=== PATIENT | female | born 1965 | race Caucasian/White ===

== ENCOUNTER 2018-11-01 12:12 | Observation (INO) | payer OTHER ==
[~2018-11-01] VITALS: Ht 157.5 cm; Wt 63.3 kg
[2018-11-01] MEDS ORDERED: NITROGLYCERIN 2% 1 GM OINT PKT TD STA (13:27)
[2018-11-01] MEDS ORDERED: ASPIRIN 81 MG TAB PO STA (13:27)
[2018-11-01] MEDS ORDERED: ASPI325T30 PO (13:29)
[2018-11-01] MEDS ORDERED: NITROGLYCERIN (SL) 0.4 MG TAB SL PRN (13:30)
--- NOTE | 2018-11-01 14:23 | ERD ---
ER Documentation Chief Complaint Chief Complaint mid/ L sided CP+SOB x3d, interm/non-reprod/worse at night. 09/19 now. HPI Patient is a 53-year-old female with hypertension and diabetes who presents with chest pain. The patient has midsternal chest pain and she says that she feels a "inside her chest". She feels like it "in the heart". She says that it was like a heaviness and she has associated shortness of breath. Symptoms have been there for 3 days and come and go. She said is worse at night. She tried aspirin yesterday. She does have a primary doctor. ROS All systems reviewed and are negative except as per history of present illness. Medications Home Meds Reported Medications Aspirin* (Aspirin*) 325 Mg Tablet, 325 MG PO DAILY, TAB 11/01/18 Allergies Allergies: Coded Allergies: No Known Allergy (Unverified , 11/01/18) PMhx/Soc Medical and Surgical Hx: pt denies Medical Hx, pt denies Surgical Hx Hx Alcohol Use: Yes (occasional) Hx Substance Use: No Hx Tobacco Use: No Smoking Status: Never smoker FmHx Family History: No coronary disease Physical Exam Vitals Vital Signs Date Temp Pulse Resp B/P (MAP) Pulse Ox O2 O2 Flow FiO2 Time Delivery Rate 11/01/18 61 16 103/62 100 Room Air 13:21 (76) 11/01/18 98.7 78 18 123/66 97 12:41 (85) Physical Exam Const: No acute distress Head: Atraumatic Eyes: Normal Conjunctiva ENT: Normal External Ears, Nose and Mouth. Neck: Full range of motion. No meningismus. Resp: Clear to auscultation bilaterally Cardio: Regular rate and rhythm, no murmurs Abd: Soft, non tender, non distended. Normal bowel sounds Skin: No petechiae or rashes Back: No midline or flank tenderness Ext: No cyanosis, or edema Neur: Awake and alert Psych: Normal Mood and Affect Result Diagram: 11/01/18 1334 11/01/18 1334 Results 24 hrs Laboratory Tests Test 11/01/18 13:34 White Blood Count 5.0 10^3/ul Red Blood Count 4.15 10^6/ul Hemoglobin 12.7 g/dl Hematocrit 37.6 % Mean Corpuscular Volume 90.6 fl Mean Corpuscular Hemoglobin 30.6 pg Mean Corpuscular Hemoglobin Concent 33.8 g/dl Red Cell Distribution Width 12.2 % Platelet Count 253 10^3/UL Mean Platelet Volume 10.0 fl Immature Granulocytes % 0.200 % Neutrophils % 44.1 % Lymphocytes % 45.9 % Monocytes % 7.6 % Eosinophils % 1.6 % Basophils % 0.6 % Nucleated Red Blood Cells % 0.0 /100WBC Immature Granulocytes # 0.010 10^3/ul Neutrophils # 2.2 10^3/ul Lymphocytes # 2.3 10^3/ul Monocytes # 0.4 10^3/ul Eosinophils # 0.1 10^3/ul Basophils # 0.0 10^3/ul Nucleated Red Blood Cells # 0.0 10^3/ul Sodium Level 139 mmol/L Potassium Level 4.0 mmol/L Chloride Level 107 mmol/L Carbon Dioxide Level 24 mmol/L Anion Gap 8 Blood Urea Nitrogen 18 mg/dl Creatinine 0.70 mg/dl Est Glomerular Filtrat Rate mL/min > 60 mL/min Glucose Level 103 mg/dl Calcium Level 10.1 mg/dl Troponin I < 0.012 ng/ml Current Medications Medications Dose Sig/Andreia Start Time Status Last (Trade) Ordered Route PRN Stop Time Admin Dose Reason Admin Aspirin 162 mg ONCE STAT 11/01/18 DC 11/01/18 (Aspirin) PO 13:27 13:40 11/01/18 13:28 1 inch ONCE STAT 11/01/18 DC 11/01/18 Nitroglycerin TD 13:27 13:41 11/01/18 13:28 (Nitroglyceri n 2% Oint) 1 tab Q5M UP TO 3 11/01/18 11/01/18 Nitroglycerin DOSES PRN 13:30 13:40 SL .CHEST (Nitroglyceri PAIN n (Sl Tab) 0.4 Mg) Ondansetron 4 mg ER BRIDGE 11/01/18 HCl (Zofran PRN IV 14:30 Inj) NAUSEA/VOMITI 11/02/18 14:29 NG 650 mg ER BRIDGE 11/01/18 Acetaminophen PRN PO 14:30 (Tylenol .MILD PAIN 11/02/18 14:29 Tab) 1-3 OR TEMP Procedures/MDM EKG read by me: Rate/Rhythm: Regular rate and rhythm at a normal rate Intervals: Normal Impression: No evidence of ischemia or arrhythmia Chest x-ray negative per radiology. Patient is a 53-year-old female with hypertension and diabetes who presents with chest pain and shortness of breath. I am concerned for potential acute coronary syndrome. I doubt pneumonia, pneumothorax, pulmonary embolism, or aortic dissection. The patient will be admitted to Dr. Rodriguez as the patient has [facility] insurance. The patient will be admitted to a telemetry observation bed. I have contacted Dr. Rodriguez by [employer]. The patient was given aspirin and nitroglycerin empirically. Departure Diagnosis: Primary Impression: Chest pain Chest pain type: unspecified Qualified Codes: R07.9 - Chest pain, unspecified Condition: MAIK Patel MD Nov 01, 2018 14:23
[2018-11-01] MEDS ORDERED: ONDANSETRON 4 MG INJ IV PRN ×2 (14:30→17:30)
[2018-11-01] MEDS ORDERED: ACETAMINOPHEN 325 MG TAB PO PRN ×2 (14:30→17:30)
--- NOTE | 2018-11-01 17:05 | QN ---
Documentation Comment seen and examined MOOK TOBAR MD Nov 01, 2018 17:05
--- NOTE | 2018-11-01 17:11 | QN ---
Documentation Comment seen and examined MOOK TOBAR MD Nov 01, 2018 17:11
[2018-11-01] MEDS ORDERED: DOCUSATE SODIUM 100 MG CAP PO PRN (17:30)
[2018-11-01] MEDS ORDERED: NACL 0.9% 3 ML SYG IV SCH (17:30)
[2018-11-01] MEDS ORDERED: HYDROCODONE/APAP (5/325) TAB PO PRN (17:30)
[2018-11-01] MEDS ORDERED: ZOLPIDEM 5 MG TAB PO PRN (17:30)
[2018-11-01] MEDS ORDERED: morphine 2 MG INJ IV PRN (17:30)
[2018-11-01 17:53] VITALS: BP 112/60; PULSE 66; RESP 19
[2018-11-01 18:19] VITALS: Ht 157.5 cm; Wt 63.3 kg
--- NOTE | 2018-11-01 19:26 | HP ---
DATE OF ADMISSION: 11/01/2018 REASON FOR ADMISSION: Chest pain. HISTORY OF PRESENT ILLNESS: A 53-year-old female who was recently diagnosed with diabetes, controlle d currently, diet controlled, presented to the emergency department after complaining of chest pain f or the last 3 days. According to the patient, last 3 days ago she was sleeping all of a sudden, then she started noticing stabbing pain in her chest. The pain was coming and going, associated sometime s with breathing lasting for a few seconds. It was getting worse for the last 3 days and made him wo rried and came to the emergency department. The patient was recently diagnosed with diabetes a month ago and has been on diet control per the PMD. The patient also had some slight shortness of breath on admission. Denied any cough, any fevers or chills. On arrival to ED, vital signs showed blood pr essure of 123/66, afebrile, heart rate 78, respirations 18, saturating 97%. Labs showed troponin les s than 0.015. White count 5.0, hemoglobin 12.7. EKG did not show any acute ST or T wave changes. C hest x-ray was negative. The patient was given aspirin and nitroglycerin. The patient felt some rel ief of pain with nitroglycerin and was admitted for further management. PAST MEDICAL HISTORY: 1. Recently diagnosed diabetes. 2. Questionable hypertension. ALLERGIES: NONE. PAST SURGICAL HISTORY: The patient has a left shoulder lipoma surgery. SOCIAL HISTORY: Denies any history of smoking, alcohol or any drug use. Currently lives at home wit h the family, is a director [employer]. FAMILY HISTORY: Noncontributory. REVIEW OF SYSTEMS: The patient has been having intermittently pressure-like pain, stabbing-like pain in the left chest, lasting for a few seconds for the last 3 days. Denied any anxiety, stress, or an y heartburn. Denied any abdominal pain, nausea, vomiting, or diarrhea. Denied any headache or any b lurry vision. Denied any hematemesis or melena. Denied any focal neurological deficit. PHYSICAL EXAMINATION: VITAL SIGNS: Temperature afebrile, heart rate 78, respirations 18, blood pressure 123/66, saturating 97%. GENERAL: The patient is awake, alert, and oriented. She does not appear in any acute distress. HEENT: Pupils equal, round, and reactive to light. NECK: Supple, no JVD. HEART: Regular rate and rhythm. LUNGS: Clear to auscultate bilaterally. ABDOMEN: Soft, nontender, and nondistended. EXTREMITIES: No clubbing, cyanosis, or edema. DIAGNOSTIC DATA: BMP within normal limits. White count 5.0, hemoglobin 12.5, platelet count 253,000 . EKG: Normal rate and rhythm. ASSESSMENT AND PLAN: This is a 53-year-old female who presented with: 1. Chest pain, rule out acute coronary syndrome. The patient has only risk factor of recently diagn osed diabetes. Chest x-ray is negative. It could be also questionable underlying stress, anxiety/ga stroesophageal reflux disease. 2. Recently diagnosed diabetes. PLAN: At this period of time, the patient will be admitted to telemetry. The patient will be on asp irin. We will check a cholesterol panel. The patient will be on morphine for pain. We will get an echo and serial troponins. Cardiology consultation will be obtained. The rest of the treatment depe nds on the patient's hospitalization course. Dictated By: MOOK CAREY/JUAN Conf#: [id number] DID#: [id number] CC: ELEAZAR DEAN MD;*End*
[2018-11-01 20:00] VITALS: BP 117/68; PULSE 58; PULSE 65; RESP 18
[2018-11-01] MEDS: FAMOTIDINE 20 MG INJ IV SCH (20:52)
[2018-11-02] VITALS: BP 107/51; PULSE 54; PULSE 55; RESP 18
[2018-11-02 04:00] VITALS: BP 100/50; PULSE 55; PULSE 60; RESP 18
[2018-11-02 07:16] VITALS: BP 102/48; PULSE 54; RESP 19
[2018-11-02 08:00] VITALS: PULSE 63
[2018-11-02] MEDS: FAMOTIDINE 20 MG INJ IV SCH (08:28)
--- NOTE | 2018-11-02 08:51 | CONS ---
Consultation Date/Type/Reason Admit Date/Time Nov 01, 2018 at 14:19 Type of Consult Cardiology Date/Time of Note DATE: 11/02/18 TIME: 08:50 Hx of Present Illness 53 yo with ? htn, new DM - CP - non ischemic, outpt stress test vs med rx advised as pre-test probability is low. Full note dictated # [id number] Past Medical History Home Meds Reported Medications Aspirin* (Aspirin*) 325 Mg Tablet, 325 MG PO DAILY, TAB 11/01/18 Medications Current Medications Nitroglycerin (Nitroglycerin (Sl Tab) 0.4 Mg) 1 tab Q5M UP TO 3 DOSES PRN SL .CHEST PAIN Last administered on 11/01/18at 13:40; Admin Dose 1 TAB; Start 11/01/18 at 13:30 Ondansetron HCl (Zofran Inj) 4 mg ER BRIDGE PRN IV NAUSEA/VOMITING; Start 11/01/18 at 14:30; Stop 11/02/18 at 14:29 Acetaminophen (Tylenol Tab) 650 mg ER BRIDGE PRN PO .MILD PAIN 1-3 OR TEMP; Start 11/01/18 at 14:30; Stop 11/02/18 at 14:29 IV Flush (NS 3 ml) 3 ml PER PROTOCOL IV ; Start 11/01/18 at 17:30 Ondansetron HCl (Zofran Inj) 4 mg Q6H PRN IV NAUSEA/VOMITING; Start 11/01/18 at 17:30 Acetaminophen (Tylenol Tab) 650 mg Q6H PRN PO .PAIN 1-3 OR TEMP; Start 11/01/18 at 17:30 Acetaminophen/ Hydrocodone Bitart (Beatrice (5/325)) 1 tab Q6H PRN PO .MOD PAIN 4- 6; Start 11/01/18 at 17:30 Morphine Sulfate (morphine) 2 mg Q4H PRN IV .SEVERE PAIN 7-10; Start 11/01/18 at 17:30 Docusate Sodium (Colace) 100 mg Q12H PRN PO .CONSTIPATION; Start 11/01/18 at 17:30 Zolpidem Tartrate (Ambien) 5 mg QHS PRN PO .INSOMNIA; Start 11/01/18 at 17:30 Famotidine (Pepcid Iv) 20 mg Q12 IV Last administered on 11/02/18at 08:28; Admin Dose 20 MG; Start 11/01/18 at 21:00 Enoxaparin Sodium (Lovenox) 40 mg DAILY SC Last administered on 11/02/18at 08:37; Admin Dose 40 MG; Start 11/02/18 at 09:00 Aspirin (Halfprin) 81 mg DAILY PO Last administered on 11/02/18at 08:28; Admin Dose 81 MG; Start 11/02/18 at 09:00 Allergies: Coded Allergies: No Known Allergy (Unverified , 11/01/18) Social History Smoking Status: Never smoker Exam/Review of Systems Vital Signs Vitals Vital Signs Date Temp Pulse Resp B/P (MAP) Pulse Ox O2 O2 Flow FiO2 Time Delivery Rate 11/02/18 98.1 54 19 102/48 98 07:16 (66) 11/01/18 Room Air 17:33 Intake and Output 11/01/18 11/01/18 11/02/18 1515:00 23:00 07:00 IntakeIntake Total 400 ml BalanceBalance 400 ml Labs Result Diagram: 11/01/18 1334 11/01/18 1334 Results 24hrs Laboratory Tests Test 11/01/18 13:34 11/01/18 17:18 11/01/18 19:12 11/01/18 23:11 White Blood Count 5.0 Red Blood Count 4.15 L Hemoglobin 12.7 Hematocrit 37.6 Mean Corpuscular 90.6 Volume Mean Corpuscular 30.6 Hemoglobin Mean Corpuscular 33.8 Hemoglobin Concent Red Cell 12.2 Distribution Width Platelet Count 253 Mean Platelet Volume 10.0 Immature 0.200 Granulocytes % Neutrophils % 44.1 Lymphocytes % 45.9 Monocytes % 7.6 Eosinophils % 1.6 Basophils % 0.6 Nucleated Red Blood 0.0 Cells % Immature 0.010 Granulocytes # Neutrophils # 2.2 Lymphocytes # 2.3 Monocytes # 0.4 Eosinophils # 0.1 Basophils # 0.0 Nucleated Red Blood 0.0 Cells # Sodium Level 139 Potassium Level 4.0 Chloride Level 107 Carbon Dioxide Level 24 Anion Gap 8 Blood Urea Nitrogen 18 Creatinine 0.70 Est Glomerular > 60 Filtrat Rate mL/min Glucose Level 103 Calcium Level 10.1 Troponin I < 0.012 < 0.012 < 0.012 < 0.012 D-Dimer < 220.00 D-Dimer Comment Creatine Kinase 67 68 62 Creatine Kinase 0.8 0.7 0.8 Index Creatinine Kinase MB 0.51 0.49 0.47 (Mass) Test 11/02/18 05:13 Creatine Kinase 57 Creatine Kinase 0.7 Index Creatinine Kinase MB 0.41 (Mass) Troponin I < 0.012 Medications Medications Current Medications Nitroglycerin (Nitroglycerin (Sl Tab) 0.4 Mg) 1 tab Q5M UP TO 3 DOSES PRN SL .CHEST PAIN Last administered on 11/01/18at 13:40; Admin Dose 1 TAB; Start 11/01/18 at 13:30 Ondansetron HCl (Zofran Inj) 4 mg ER BRIDGE PRN IV NAUSEA/VOMITING; Start 11/01/18 at 14:30; Stop 11/02/18 at 14:29 Acetaminophen (Tylenol Tab) 650 mg ER BRIDGE PRN PO .MILD PAIN 1-3 OR TEMP; Start 11/01/18 at 14:30; Stop 11/02/18 at 14:29 IV Flush (NS 3 ml) 3 ml PER PROTOCOL IV ; Start 11/01/18 at 17:30 Ondansetron HCl (Zofran Inj) 4 mg Q6H PRN IV NAUSEA/VOMITING; Start 11/01/18 at 17:30 Acetaminophen (Tylenol Tab) 650 mg Q6H PRN PO .PAIN 1-3 OR TEMP; Start 11/01/18 at 17:30 Acetaminophen/ Hydrocodone Bitart (Beatrice (5/325)) 1 tab Q6H PRN PO .MOD PAIN 4- 6; Start 11/01/18 at 17:30 Morphine Sulfate (morphine) 2 mg Q4H PRN IV .SEVERE PAIN 7-10; Start 11/01/18 at 17:30 Docusate Sodium (Colace) 100 mg Q12H PRN PO .CONSTIPATION; Start 11/01/18 at 17:30 Zolpidem Tartrate (Ambien) 5 mg QHS PRN PO .INSOMNIA; Start 11/01/18 at 17:30 Famotidine (Pepcid Iv) 20 mg Q12 IV Last administered on 11/02/18at 08:28; Admin Dose 20 MG; Start 11/01/18 at 21:00 Enoxaparin Sodium (Lovenox) 40 mg DAILY SC Last administered on 11/02/18at 08:37; Admin Dose 40 MG; Start 11/02/18 at 09:00 Aspirin (Halfprin) 81 mg DAILY PO Last administered on 11/02/18at 08:28; Admin Dose 81 MG; Start 11/02/18 at 09:00 BERKLEY STEWART MD Nov 02, 2018 08:51
[2018-11-02] MEDS ORDERED: ENOXAPARIN 40 MG/0.4 ML SYG SC SCH (09:00)
[2018-11-02] MEDS ORDERED: ASPIRIN (EC) 81 MG TAB PO SCH (09:00)
--- NOTE | 2018-11-02 09:26 | CONS ---
DATE OF ADMISSION: 11/01/2018 DATE OF CONSULTATION: 11/02/2018 TYPE OF CONSULTATION: Cardiology. REFERRING PHYSICIANS: Gayathri Dawson M.D. REASON FOR EVALUATION: Precordial chest pain. HISTORY OF PRESENT ILLNESS: The patient is a 53-year-old woman with recently diagnosed diabetes, his tory of well controlled hypertension, came to the emergency department with history of precordial dis comfort for about 3 days. The patient does not have any known coronary artery disease, family histor y of coronary artery disease. She did not rule in for acute ischemia. EKG is nondiagnostic. She do es have some risk factors for coronary artery disease and I offered the patient to have a stress test while she is here in the hospital, but I think that she would prefer to do it as an outpatient. I w ill discuss with Dr. Dawson. I think inpatient versus outpatient testing would be reasonable. Other than that conservative therapy expected for now. PAST MEDICAL HISTORY: Recently diagnosed diabetes, questionable hypertension. ALLERGIES: NO KNOWN DRUG ALLERGIES. SOCIAL HISTORY: The patient does not smoke, does not drink or illicit drugs. FAMILY HISTORY: Negative for sudden cardiac or premature coronary artery disease. MEDICATIONS: Include: 1. Aspirin 81 mg. 2. Famotidine. 3. Morphine for pain. 4. Subcutaneously Lovenox. 5. Sublingual nitroglycerin. REVIEW OF SYSTEMS: CONSTITUTIONAL: No fevers, no chills, no recent weight changes. HEENT: No change in vision or hearing. CARDIAC: Chest pain for now. RESPIRATORY: Short of breath. GASTROINTESTINAL: No nausea, vomiting. GENITOURINARY: No dysuria, hematuria. NEUROLOGIC: No focal neurologic deficit. HEMATOLOGIC: No easy bruising. PSYCHIATRIC: No history of psychiatric illness. DERMATOLOGIC: No rashes. PHYSICAL EXAMINATION: VITAL SIGNS: Temperature 98.1, heart rate 54, blood pressure 102/48. GENERAL: She is thin woman in no acute distress, alert and oriented x3, aware of her condition. HEAD: Normocephalic, atraumatic. Eyes anicteric. NECK: Supple. JVD 6 cm. No lymphadenopathy, no thyromegaly. HEART: Holosystolic murmur at the apex. PMI is minimally displaced. There is no S3. LUNGS: Coarse sounds clear to auscultation. ABDOMEN: Bowel sounds present. No hepatosplenomegaly. GENITOURINARY: Intact. EXTREMITIES: Showing no clubbing, cyanosis or edema. LABORATORY DATA: White blood cell count 4.3, hemoglobin 12.7, platelets 253. Her INR is normal and troponins are normal at 0.012. ASSESSMENT AND PLAN: 1. Precordial chest pain. The patient's precordial chest pain is atypical by presentation. I think it is reasonable for the patient has an outpatient risk stratification with a stress test given rece nt factors. 2. Possible hypertension. Blood pressure is not elevated now. She is not in any significant blood pressure medications, continue to monitor. We will consider to add HARSHA inhibitor if possible, but I am not sure blood pressure will tolerate. 3. Possible anxiety defer to primary team for the stress test recently diagnosed diabetes. Dr. Kurtz in will follow. I would like to thank Dr. Dawson, for referring this patient for my evaluation. Dictated By: BERKLEY STEWART MD ML/NTS Conf#: [id number] DID#: [id number] CC: ELEAZAR DEAN MD; INDIGO FRIEDMAN MD;*EndCC*
[2018-11-02 11:07] VITALS: BP 111/47; PULSE 67; RESP 19
--- NOTE | 2018-11-02 11:10 | PDOCDIS ---
Discharge Instructions DIAGNOSIS Discharge Diagnosis Atypical chest pain CONDITION [id number] Patient Condition: Mgmvf6h Fair HOME CARE INSTRUCTIONS: [id number] Diet Instructions: Ofmqd3e Low Fat /Cholesterol Lmpox2Bz Special Diet: Vsyxk0o Carb controlled ACTIVITY: [id number] Activity Restrictions: Nfipl5x Slowly Increase Activity Rest between Activity Avoid heavy lifting FOLLOW UP/APPOINTMENTS Follow-up Plan Follow with PCP in 1-2 weeks Follow-up with cardiology and outpatient stress testing Return to ER if he has chest pain and shortness of breath MOOK TOBAR MD Nov 02, 2018 11:10
[2018-11-02 12:00] VITALS: PULSE 73
--- NOTE | 2018-11-02 14:49 | RADRPT ---
Echocardiogram Report Patient Name: CATRACHITA CLEVELANDPatient ID: [id number] : 1965 (53y 8m)Study Date: 11/02/2018 7:33:16 AM Gender: FAccession #: [id number] Tech: KhushbooJeromy Hinson [facility] Location: 9 Ref.Physician: MOOK TOBAR Height(Cm): BSA: Weight(Kg): Quality: AdequateAccount #: Procedures: Echocardiographic Report: Transthoracic echocardiogram with complete 2D, M-Mode, and doppler examination. Indications: Chest Pain. Measurements: 2D/M Mode Doppler Measurement Value Normal Range Measurement Value Normal Range LVIDd 2D 3.9 [ 3.8 - 5.2 ] cm AV Peak Quique 1.2 [ 100.0 - 170.0 ] cm/sec LVIDs 2D 2.3 [ 2.2 - 3.5 ] cm AV Peak PG 6.0 [ 2.0 - 9.0 ] mmHg LVPWd 2D 1.0 [ 0.6 - 0.9 ] cm LVOT Peak Quique 0.9 [ 70.0 - 110.0 ] cm/sec IVSd 2D 0.8 [ 0.6 - 0.9 ] cm LVOT Peak PG 3.0 [ 2.0 - 6.0 ] mmHg AoR Diam 2D 2.3 [ 2.3 - 3.1 ] cm MV E Peak Quique 0.7 [ 60.0 - 130.0 ] cm/sec EDV 2D 67.5 [ 46.0 - 106.0 ] ml MV A Peak Quique 0.5 [ 100.0 - 120.0 ] cm/sec ESV 2D 18.7 [ 14.0 - 42.0 ] ml MV E/A 1.4 [ 0.8 - 1.5 ] ratio EF 2D 72.3 [ 54.0 - 74.0 ] percent MV Decel Time 176 [ 104 - 258 ] msec LA Dimen 2D 3.0 [ 2.7 - 3.8 ] cm Lat E` Quique 0.1 [ 10.0 - 15.0 ] cm/sec Lateral E/E` 5.4 [ 1.0 - 2.0 ] ratio MV E/A 1.4 [ 0.8 - 1.5 ] ratio TR Peak Quique 2.6 [ 100.0 - 280.0 ] cm/sec TR Peak PG 27.0 mmHg RVSP 30.0 [ 10.0 - 36.0 ] mmHg RA Pressure 3.0 mmHg Findings: Left Ventricle: Normal left ventricular systolic function. Normal left ventricular cavity size. Normal left ventricular wall thickness. Ejection fraction is visually estimated at 60 %. Tissue Doppler/Mitral Doppler indices are within normal limits. Right Ventricle: Normal right ventricular size. Normal right ventricular systolic function. Left Atrium: The left atrium is normal in size. Right Atrium: The right atrium is normal in size. Mitral Valve: Normal appearance and function of the mitral valve with trace physiologic regurgitation. Aortic Valve: Normal appearance of the aortic valve. No significant aortic stenosis or insufficiency. Tricuspid Valve: Normal appearance of the tricuspid valve. Estimated peak PA systolic pressure 30 mmHg. There is mild tricuspid regurgitation. Pulmonic Valve: Pulmonic valve not well visualized. Pericardium: Normal pericardium with no significant pericardial effusion. Aorta: Normal aortic root. IVC: Normal size and normal respiratory collapse consistent with normal right atrial pressure. Conclusions: Normal left ventricular systolic function. Normal left ventricular cavity size. Normal left ventricular wall thickness. Ejection fraction is visually estimated at 60 %. Tissue Doppler/Mitral Doppler indices are within normal limits. Normal appearance and function of the mitral valve with trace physiologic regurgitation. Normal appearance of the tricuspid valve. Estimated peak PA systolic pressure 30 mmHg. There is mild tricuspid regurgitation. Electronically Signed By: Davey Chávez 2018-11-02 14:48:45 PDT
--- NOTE | 2018-11-02 14:59 | DS ---
DATE OF ADMISSION: 11/01/2018 DATE OF DISCHARGE: 11/02/2018 HISTORY OF PRESENTING ILLNESS AND HOSPITAL COURSE: A 53-year-old female who recently diagnosed with diabetes diet controlled, presented to the emergency department after complaining of chest pain for t he last 3 days. According to the patient last 3 days ago, she was sleeping. All of a sudden, she st arted noticing stabbing pain in her chest. Pain was coming and going associated sometimes with breat mary ann lasting for a few seconds. It was getting worse for the last 3 days and came to the emergency d epartment. She denies shortness of breath, any cough, fevers and chills. The patient has good exerc ise tolerance. The patient was admitted to telemetry unit. EKG did not show any acute ST or T wave changes. She had serial troponins that were negative. The patient had a D-dimer that was negative. Chest pain resolved. The next day, the patient was seen by cardiology consultation with Dr. Bosch. As per his recommendations, pain is very atypical. It could be secondary to anxiety disorder and c an follow up with the stress test as an outpatient. FINAL DISCHARGE DIAGNOSES: 1. Atypical chest pain, questionable stress. 2. Recently diagnosed diabetes. 3. Stress. DISCHARGE CONDITION: Stable. DISCHARGE DIET: Heart healthy carb-controlled diet. DISCHARGE MEDICATIONS: The patient was instructed to follow up with PCP in 1 to 2 weeks. Follow up with cardiology in 1 to 2 weeks. Possible stress testing. Continue with aspirin 81 mg p.o. daily. Dictated By: MOOK TOBAR RB/JUAN Conf#: [id number] DID#: [id number] CC: INDIGO FRIEDMAN MD; ELEAZAR DEAN MD;*EndCC*
== END 2018-11-02 16:45 | disposition home or self-care (01) ==
LOC: E/R 12:12 → 6WM 14:19
PROVIDERS: ADMIT Internal Medicine Nephrology; ATTEND Internal Medicine Nephrology
DX: R07.89 Other chest pain (principal); E11.9 Type 2 diabetes mellitus without complications; F43.9 Reaction to severe stress, unspecified; Z79.82 Long term (current) use of aspirin
CPT/HCPCS: 36415; 71045; 80048; 82550; 82553; 84443; 84484; 85025; 85378; 93005; 93306; J1650; Z7500; Z7502; Z7610; G0378